=== PATIENT | male | born 1960 | race Caucasian/White ===

== ENCOUNTER 2016-10-02 14:37 | Inpatient (IN) | payer OTHER ==
[~2016-10-02] VITALS: Ht 162.6 cm; Wt 63.5 kg
[2016-10-02] MEDS ORDERED: Vancomycin 1 GM in NS 275 ML IV ONE (15:00)
[2016-10-02] MEDS ORDERED: NS 1000ml 1,900 ML IVLG ONE (15:00)
[2016-10-02 15:30] VITALS: BP 122/75
[2016-10-02] MEDS ORDERED: ATORVASTATIN CA80 MG ORAL (15:36)
[2016-10-02] MEDS ORDERED: ASPIR 8181 MG ORAL (15:36)
[2016-10-02] MEDS ORDERED: ACETAMINOPHEN325 M1 ORAL (15:36)
[2016-10-02 15:37] LABS: BASOPHILS % (AUTO) 1.1 % (0.0-2.0); EOSINOPHILS % (AUTO) 2.2 % (0.0-3.0); LYMPHOCYTES % (AUTO) 40.5 % (20.0-45.0); MEAN CORPUSCULAR HGB CONC 29.8 G/DL (32.0-36.0); MEAN CORPUSCULAR VOLUME 67 FL (80-99); MEAN PLATELET VOLUME 7.2 FL (6.5-10.1); MONOCYTES % (AUTO) 7.5 % (1.0-10.0); NEUTROPHILS % (AUTO) 48.8 % (45.0-75.0); PLATELET COUNT 276 K/UL (150-450); RED CELL DISTRIBUTION WIDTH 15.3 % (11.6-14.8); WHITE BLOOD COUNT 6.5 K/UL (4.8-10.8)
[2016-10-02] MEDS ORDERED: BENAZEPRIL HCL10 MG ORAL (15:37)
[2016-10-02] MEDS ORDERED: PLAVIX75 MG ORAL (15:37)
[2016-10-02] MEDS ORDERED: DILAUDID8 MG PO (15:37)
[2016-10-02 15:45] LABS: PROTHROMBIN TIME 10.7 SEC (9.30-11.50)
[2016-10-02] MEDS ORDERED: Vancomycin 1gm inj IVPB ONE (15:46)
--- NOTE | 2016-10-02 15:47 | Emergency Room Report ---
History of Present Illness General Chief Complaint: General Complaint Source: Patient, Medical Record, EMS Present Illness HPI This patient is brought in from a shelter facility. He is brought in by EMS. He presents for concern of poor wound healing. The patient underwent a left BKA July 31 at [facility]. It is very difficult to determine what exactly the patient is here for. I attempted to contact the physician who sent this patient from a shelter facility was having difficulty with this. Review of the medical record shows that there is wound dehiscence at the surgical site of the left BKA and he has been getting wound care. I believe that he is presenting for the wound dehiscence. The patient has no specific complaints. There is no fever or chills. There is no nausea or vomiting. There are no other complaints. Allergies: Coded Allergies: No Known Allergies (Unverified , 10/02/16) Patient History Past Medical History: see triage record, old chart reviewed, DM, HTN, psych hx , other - PAD Past Surgical History: other - R.BKA, L. BKA Social History: Denies: alcohol use, drug use, smoking Reviewed Nursing Documentation: PMH: Agreed, PSxH: Agreed Nursing Documentation-PMH Past Medical History: No History, Except For Hx Hypertension: Yes - Hyperlipidemia Hx Diabetes: Yes Review of Systems All Other Systems: negative except mentioned in HPI Physical Exam Vital Signs Date Time Temp Pulse Resp B/P Pulse Ox O2 Delivery O2 Flow Rate FiO2 10/02/16 14:38 98.2 82 16 122/75 96 Room Air Sp02 EP Interpretation: reviewed, normal General Appearance: no apparent distress, alert, GCS 15, non-toxic Head: normocephalic, atraumatic Eyes: bilateral eye PERRL, bilateral eye normal inspection ENT: hearing grossly normal, normal pharynx, no angioedema, normal voice Neck: full range of motion, supple/symm/no masses Respiratory: chest non-tender, lungs clear, normal breath sounds, speaking full sentences Cardiovascular #1: regular rate, rhythm, no edema Gastrointestinal: normal bowel sounds, non tender, soft, non-distended, no guarding, no rebound Rectal: deferred Musculoskeletal: normal range of motion, other - Left BKA post surgical incision site shows several quarter-sized areas of wound dehiscence. No surrounding erythema, purulent or warmth. Neurologic: alert, oriented x3, responsive, motor strength/tone normal, sensory intact, speech normal Psychiatric: judgement/insight normal, memory normal, mood/affect normal, no suicidal/homicidal ideation Skin: normal color, warm/dry, well hydrated, other - See MSK exam Medical Decision Making Diagnostic Impression: Primary Impression: Wound dehiscence ER Course This patient has wound dehiscence at his left BKA post surgical incision site. The surgery was done at [facility]. There is no evidence of wound infection. The patient's lactate was elevated. I am unsure of the etiology of this. The patient does have a wound dehiscence. The patient was given broad- spectrum antibiotics and will be admitted for further evaluation and treatment. Labs Test 10/02/16 15:15 White Blood Count 6.5 K/UL (4.8-10.8) Red Blood Count 5.50 M/UL (4.70-6.10) Hemoglobin 11.0 G/DL (14.2-18.0) Hematocrit 36.9 % (42.0-52.0) Mean Corpuscular Volume 67 FL (80-99) Mean Corpuscular Hemoglobin 20.0 PG (27.0-31.0) Mean Corpuscular Hemoglobin Concent 29.8 G/DL (32.0-36.0) Red Cell Distribution Width 15.3 % (11.6-14.8) Platelet Count 276 K/UL (150-450) Mean Platelet Volume 7.2 FL (6.5-10.1) Neutrophils (%) (Auto) 48.8 % (45.0-75.0) Lymphocytes (%) (Auto) 40.5 % (20.0-45.0) Monocytes (%) (Auto) 7.5 % (1.0-10.0) Eosinophils (%) (Auto) 2.2 % (0.0-3.0) Basophils (%) (Auto) 1.1 % (0.0-2.0) Prothrombin Time 10.7 SEC (9.30-11.50) Prothromb Time International Ratio 1.0 (0.9-1.1) Activated Partial Thromboplast Time 27 SEC (23-33) Sodium Level 135 mEQ/L (135-145) Potassium Level 4.6 mEQ/L (3.4-4.9) Chloride Level 98 mEQ/L (98-107) Carbon Dioxide Level 25 mEQ/L (20-30) Anion Gap 12 (5-15) Blood Urea Nitrogen 10 mg/dL (7-23) Creatinine 0.7 mg/dL (0.7-1.2) Estimat Glomerular Filtration Rate > 60 mL/min (>60) Glucose Level 199 mg/dL (74-106) Calcium Level 9.4 mg/dL (8.6-10.2) Total Bilirubin 0.2 mg/dL (0.0-1.2) Aspartate Amino Transf (AST/SGOT) 11 U/L (5-40) Alanine Aminotransferase (ALT/SGPT) 8 U/L (3-41) Alkaline Phosphatase 36 U/L (40-129) Total Creatine Kinase 35 U/L (38-174) Creatine Kinase MB 2.4 ng/mL (< 6.7) Creatine Kinase MB Relative Index 6.8 Total Protein 6.4 g/dL (6.6-8.7) Albumin 3.8 g/dL (3.5-5.2) Globulin 2.6 g/dL Albumin/Globulin Ratio 1.4 (1.0-2.7) EKG Diagnostic Results Rate: normal Rhythm: NSR ST Segments: no acute changes Rhythm Strip Diag. Results EP Interpretation: yes Rate: 80's Rhythm: NSR, no PVC's, no ectopy Last Vital Signs Date Time Temp Pulse Resp B/P Pulse Ox O2 Delivery O2 Flow Rate FiO2 10/02/16 14:38 98.2 82 16 122/75 96 Room Air Disposition: ADMITTED INPATIENT Condition: Stable Referrals: [facility],REFERRING (PCP) FITO GONZALEZ D.O. Oct 02, 2016 15:47
[2016-10-02] MEDS ORDERED: BISACODYL5 MG RECTAL (15:48)
[2016-10-02] MEDS ORDERED: FLEET ENEMA133 ML RECTAL (15:48)
[2016-10-02] MEDS ORDERED: GABAPENTIN100 MG ORAL (15:48)
[2016-10-02] MEDS ORDERED: GABAPENTIN300 MG ORAL (15:49)
[2016-10-02] MEDS ORDERED: HUMALOG100 UNIT/4 SUBQ (15:49)
[2016-10-02] MEDS ORDERED: LANTUS SOL100 UNIT/1 SUBQ (15:49)
[2016-10-02 15:52] LABS: ALANINE AMINOTRANSFERASE 8 U/L (3-41); ALBUMIN/GLOBULIN RATIO 1.4 (1.0-2.7); ANION GAP 12 (5-15); ASPARTATE AMINO TRANSFERASE 11 U/L (5-40); CALCIUM 9.4 mg/dL (8.6-10.2); CARBON DIOXIDE 25 mEQ/L (20-30); CHLORIDE 98 mEQ/L (98-107); CREATININE 0.7 mg/dL (0.7-1.2); GLOMERULAR FILTRATION RATE > 60 mL/min (>60); HEMOLYSIS 5; POTASSIUM 4.6 mEQ/L (3.4-4.9); SODIUM 135 mEQ/L (135-145); TOTAL PROTEIN 6.4 g/dL (6.6-8.7)
[2016-10-02 16:02] LABS: CKMB 2.4 ng/mL (< 6.7)
[2016-10-02 16:18] VITALS: BP 113/52
[2016-10-02 16:24] LABS: REFLEX LACTIC ACID YES OR NO YES
[2016-10-02] MEDS ORDERED: METFORMIN HCL1000 M1 ORAL (17:04)
[2016-10-02] MEDS ORDERED: MILK OF MA400 MG/51 ORAL (17:04)
[2016-10-02] MEDS ORDERED: MS CONTIN30 MG ORAL (17:04)
[2016-10-02] MEDS ORDERED: MELATONIN5 M6 PO (17:04)
[2016-10-02 17:30] VITALS: BP 129/110
[2016-10-02 19:30] VITALS: BP 122/56
[2016-10-02] MEDS ORDERED: Mylanta II UD 30ml ORAL PRN (19:30)
[2016-10-02] MEDS ORDERED: LORazepam Inj 2mg/ml 1ml IV PRN (19:30)
[2016-10-02 20:45] VITALS: BP 122/66
[2016-10-02] MEDS ORDERED: Miralax 17gm pkt ORAL PRN (21:00)
[2016-10-02] MEDS ORDERED: Zolpidem 5mg tab ORAL PRN (21:00)
[2016-10-02] MEDS: Atorvastatin 80mg tab ORAL SCH (21:41)
[2016-10-02] MEDS: Heparin 5000 units/ml inj SUBQ SCH (21:42)
[2016-10-02] MEDS: Morphine Sulfate 2mg/ml Inj IVP PRN (21:44)
[2016-10-02] MEDS: NovoLOG Insulin Flexpen SUBQ SCH (22:17)
[2016-10-03] VITALS: BP 134/74
[2016-10-03 04:00] VITALS: BP 151/64
[2016-10-03] MEDS: NovoLOG Insulin Flexpen SUBQ SCH ×4 (06:13→21:46)
[2016-10-03 08:00] VITALS: BP 136/67
[2016-10-03] MEDS: Heparin 5000 units/ml inj SUBQ SCH ×2 (09:00→21:45)
[2016-10-03] MEDS: Aspirin EC 81mg tab ORAL SCH (09:00)
[2016-10-03] MEDS: Morphine Sulfate 2mg/ml Inj IVP PRN ×4 (09:57→22:29)
--- NOTE | 2016-10-03 11:49 | Wound Care Consultation ---
Wound Assessment Wound Assessment #1: Wound Number: #1 Wound Present on Admission: Yes New Wound: No Status Change of Wound: No Wound Location Body Site Modif: left, medial Wound Location Body Site: other - stump Wound Type: other - non healing open wound. Rogelio Test: Does not Rogelio Incisional Wounds: Dehisced Incision Wound Thickness: Full Thickness Wound Length: 1.5 Wound Width: 3.2 Wound Depth: 0.5 Percent of Wound [place]/Red: 50 Percent of Wound Bed Yellow/Wh: 40 Percent of Wound Black/Brown: 10 Wound Drainage Description: Serosanguineous Wound Drainage Amount: Moderate Wound Drainage Odor: None/Absent Tissue Surrounding Wound: Erythemic - noted open wound along surgical incision scar,wound dehiscence. Wound General Appearance: Reddened, Blackened, Necrotic Wound Assessment #2: Wound Number: #2 Wound Present on Admission: Yes New Wound: No Status Change of Wound: No Wound Location Body Site Modif: left, lower, medial Wound Location Body Site: other - stump Wound Type: scab Rogelio Test: Does not Rogelio Wound Thickness: Full Thickness Wound Length: 0.5 Wound Width: 0.5 Wound Depth: utd Percent of Wound Bed Yellow/Wh: 100 - thick yellow scab. Wound Drainage Amount: None Wound Drainage Odor: None/Absent Tissue Surrounding Wound: Erythemic Wound General Appearance: Reddened - surrounding tissue reddened , wound bed noted with thick yellow adhered scab. Wound Assessment #3: Wound Number: #3 Wound Present on Admission: Yes New Wound: No Status Change of Wound: No Wound Location Body Site Modif: left, anterior Wound Location Body Site: other - stump Wound Type: other - non healing open wound. Rogelio Test: Does not Rogelio Incisional Wounds: Dehisced Incision Wound Thickness: Full Thickness Wound Length: 3.0 Wound Width: 7.5 Wound Depth: utd Percent of Wound [place]/Red: 40 Percent of Wound Bed Yellow/Wh: 60 Percent of Wound Black/Brown: 10 Wound Drainage Description: Serosanguineous Wound Drainage Amount: Moderate Wound Drainage Odor: None/Absent Tissue Surrounding Wound: Erythemic Wound General Appearance: Reddened, Blackened, Necrotic Wound Assessment #4: Wound Number: #4 Wound Present on Admission: Yes New Wound: No Status Change of Wound: No Wound Location Body Site Modif: left Wound Location Body Site: other - stump Wound Type: scar - surgical scar Rogelio Test: Does not Rogelio Wound Thickness: Full Thickness Wound Length: 14.0 Wound Width: 10.0 Wound Depth: utd Percent of Wound [place]/Red: 100 Wound Drainage Amount: None Wound Drainage Odor: None/Absent Tissue Surrounding Wound: Intact Wound General Appearance: Clean/Dry Wound Comment #1 left stump surgical scar. #2 left lower medial stump thick yellow scab. #3 left medial stump non healing open-wound. #4 left anterior stump non healing open -wound. Recommendation. - Local wound care as ordered. -Turn and reposition. -Keep clean and dry. -Offload affected areas. -Optimize nutrition. -Avoid shear and friction. -Assess and notify MD for any changes of condition noted to skin. UMU AVILES Oct 03, 2016 11:49
[2016-10-03 12:00] VITALS: BP 137/70
[2016-10-03 16:01] VITALS: BP 151/75
--- NOTE | 2016-10-03 17:24 | History and Physical ---
History of Present Illness General Date patient seen: Oct 03, 2016 Reason for Hospitalization: General Complaint Present Illness HPI 56 year old male with hx of DM, PVD, bilateral BKA, assisted resident nany in for concern of poor wound healing. There is wound dehiscence at the surgical site of the left BKA and he has been getting wound care. Pt is admitted for worsening wound. Allergies: Coded Allergies: No Known Allergies (Unverified , 10/02/16) Medication History Scheduled Aspirin* (Aspir 81*), 81 MG ORAL DAILY, (Reported) Atorvastatin Calcium* (Lipitor*), 80 MG ORAL BEDTIME, (Reported) Benazepril Hcl* (Benazepril Hcl*), 10 MG ORAL DAILY, (Reported) Clopidogrel Bisulfate* (Plavix*), 75 MG ORAL DAILY, (Reported) Gabapentin* (Gabapentin*), 100 MG ORAL BEDTIME, (Reported) Gabapentin* (Gabapentin*), 300 MG ORAL THREE TIMES A DAY, (Reported) Insulin Glargine (Lantus), 32 UNITS SUBQ BEDTIME, (Reported) Metformin Hcl* (Metformin Hcl*), 1,000 MG ORAL TWICE A DAY, (Reported) Morphine Sulfate* (Ms Contin*), 15 MG ORAL EVERY 12 HOURS, (Reported) Morphine Sulfate* (Ms Contin*), 30 MG ORAL EVERY 12 HOURS, (Reported) Scheduled PRN Acetaminophen* (Acetaminophen 325MG Tablet*), 650 MG ORAL Q4H PRN for Fever/ Headache/Mild Pain, (Reported) Bisacodyl* (Dulcolax*), Unknown Dose RECTAL DAILY PRN for Constipation, ( Reported) Hydromorphone Hcl (Dilaudid), 4 MG PO EVERY 2 HOURS PRN for For Pain, (Reported) Magnesium Hydroxide* (Milk Of Magnesia*), 30 ML ORAL DAILY PRN for Constipation, (Reported) Melatonin (Melatonin), 5 MG PO BEDTIME PRN for Insomnia, (Reported) Na Phos,M-B/Na Phos,Di-Ba* (Fleet Enema*), 118 ML RECTAL DAILY PRN for Constipation, (Reported) Miscellaneous Medications Insulin Lispro (Humalog), 0 SUBQ, (Reported) Patient History Healthcare decision maker Resuscitation status Full Code Advanced Directive on File Yes Past Medical/Surgical History Past Medical/Surgical History: (1) Diabetes mellitus (2) PVD (peripheral vascular disease) Review of Systems All Other Systems: negative except mentioned in HPI Physical Exam General Appearance: WD/WN Lines, tubes and drains: peripheral HEENT: normocephalic Neck: non-tender Respiratory/Chest: chest wall non-tender Breasts: no masses Cardiovascular/Chest: normal peripheral pulses Abdomen: normal bowel sounds Genitourinary/Rectal: normal genital exam Last 24 Hour Vital Signs Date Time Temp Pulse Resp B/P Pulse Ox O2 Delivery O2 Flow Rate FiO2 10/03/16 16:01 99.9 77 14 151/75 100 Room Air 10/03/16 12:00 99.7 85 15 137/70 100 Nasal Cannula 10/03/16 08:00 100.6 83 20 136/67 100 Room Air 10/03/16 04:00 98.1 68 20 151/64 98 Room Air 10/03/16 00:00 98.8 87 20 134/74 99 Room Air 10/02/16 20:45 88 18 122/56 98 Room Air 10/02/16 20:45 98.9 88 18 122/66 100 Room Air 10/02/16 19:30 97.8 88 18 122/56 98 Room Air 10/02/16 17:30 97.8 86 18 129/110 100 Room Air Intake and Output 10/02/16 10/03/16 19:00 07:00 Intake Total 3225 ml Output Total 620 ml 900 ml Balance 2605 ml -900 ml Intake Oral 50 ml IV Total 3175 ml Output Urine Total 620 ml 900 ml Laboratory Tests Test 10/02/16 18:28 Lactic Acid Level 2.60 mmol/L (0.66-2.22) H Height (Feet): 5 Height (Inches): 4.00 Weight (Pounds): 140 Medications Current Medications Medications (Trade) Dose Ordered Sig/Saul Route PRN Reason Start Time Stop Time Status Last Admin Dose Admin Acetaminophen (Tylenol) 650 mg Q4H PRN ORAL Fever/Headache/Mild Pain 10/02/16 19:30 11/01/16 19:29 Acetaminophen (Tylenol) 650 mg Q4H PRN ORAL T>100.5 10/02/16 19:30 11/01/16 19:29 Al Hydroxide/Mg Hydroxide (Mylanta II) 30 ml Q6H PRN ORAL dyspepsia 10/02/16 19:30 11/01/16 19:29 Aspirin (Ecotrin) 81 mg DAILY ORAL 10/03/16 09:00 11/02/16 08:59 10/03/16 09:00 Atorvastatin Calcium (Lipitor) 80 mg BEDTIME ORAL 10/02/16 21:00 11/01/16 20:59 10/02/16 21:41 Clopidogrel Bisulfate (Plavix) 75 mg DAILY ORAL 10/03/16 09:00 11/02/16 08:59 10/03/16 09:00 Dextrose (Dextrose 50%) STAT PRN IV Hypoglycemia 10/02/16 19:30 11/01/16 19:29 Gabapentin (Neurontin) 100 mg BEDTIME ORAL 10/02/16 22:00 11/01/16 21:59 10/02/16 21:41 Heparin Sodium (Porcine) (Heparin 5000 units/ml) 5,000 units EVERY 12 HOURS SUBQ 10/02/16 21:00 11/01/16 20:59 10/03/16 09:00 Insulin Aspart (NovoLOG) BEFORE MEALS AND HS SUBQ 10/02/16 22:30 11/01/16 22:29 10/03/16 06:13 Lorazepam (Ativan 2mg/ml 1ml) 0.5 mg Q4H PRN IV For Anxiety 10/02/16 19:30 10/09/16 19:29 Morphine Sulfate (Morphine Sulfate) 1 mg Q4H PRN IVP PAIN 4-10 10/02/16 19:30 10/09/16 19:29 10/03/16 14:36 Ondansetron HCl (Zofran) 4 mg Q6H PRN IVP Nausea & Vomiting 10/02/16 19:30 11/01/16 19:29 Polyethylene Glycol (Miralax) 17 gm HSPRN PRN ORAL Constipation 10/02/16 21:00 11/01/16 20:59 Zolpidem Tartrate (Ambien) 5 mg HSPRN PRN ORAL Insomnia 10/02/16 21:00 11/01/16 20:59 Assessment/Plan Problem List: (1) Wound dehiscence ICD Codes: T81.30XA - Disruption of wound, unspecified, initial encounter SNOMED: 047839779 (2) Diabetes mellitus ICD Codes: E11.9 - Type 2 diabetes mellitus without complications SNOMED: 86743199 (3) PVD (peripheral vascular disease) ICD Codes: I73.9 - Peripheral vascular disease, unspecified SNOMED: 157427751 Assessment/Plan surgical consult wound care sliding scale RAEANN LEVINE Oct 03, 2016 17:24
--- NOTE | 2016-10-03 18:12 | Consultation ---
History of Present Illness General Date patient seen: Oct 03, 2016 Chief Complaint: General Complaint Present Illness HPI 56M s/p bilateral BKA 2 months ago at [facility] currently admitted for medical care. Was noted to have small are of wound dehiscence on left BKA incision. surgery called to evaluate. When talking with patient, states that he is well. mild pain in legs but no fever or chills. no drainage. did not note or care for wound since surgery. does not recall why he had BKA Allergies: Coded Allergies: No Known Allergies (Unverified , 10/02/16) Medication History Scheduled Aspirin* (Aspir 81*), 81 MG ORAL DAILY, (Reported) Atorvastatin Calcium* (Lipitor*), 80 MG ORAL BEDTIME, (Reported) Benazepril Hcl* (Benazepril Hcl*), 10 MG ORAL DAILY, (Reported) Clopidogrel Bisulfate* (Plavix*), 75 MG ORAL DAILY, (Reported) Gabapentin* (Gabapentin*), 100 MG ORAL BEDTIME, (Reported) Gabapentin* (Gabapentin*), 300 MG ORAL THREE TIMES A DAY, (Reported) Insulin Glargine (Lantus), 32 UNITS SUBQ BEDTIME, (Reported) Metformin Hcl* (Metformin Hcl*), 1,000 MG ORAL TWICE A DAY, (Reported) Morphine Sulfate* (Ms Contin*), 15 MG ORAL EVERY 12 HOURS, (Reported) Morphine Sulfate* (Ms Contin*), 30 MG ORAL EVERY 12 HOURS, (Reported) Scheduled PRN Acetaminophen* (Acetaminophen 325MG Tablet*), 650 MG ORAL Q4H PRN for Fever/ Headache/Mild Pain, (Reported) Bisacodyl* (Dulcolax*), Unknown Dose RECTAL DAILY PRN for Constipation, ( Reported) Hydromorphone Hcl (Dilaudid), 4 MG PO EVERY 2 HOURS PRN for For Pain, (Reported) Magnesium Hydroxide* (Milk Of Magnesia*), 30 ML ORAL DAILY PRN for Constipation, (Reported) Melatonin (Melatonin), 5 MG PO BEDTIME PRN for Insomnia, (Reported) Na Phos,M-B/Na Phos,Di-Ba* (Fleet Enema*), 118 ML RECTAL DAILY PRN for Constipation, (Reported) Miscellaneous Medications Insulin Lispro (Humalog), 0 SUBQ, (Reported) Patient History History Provided By: Patient, Medical Record Healthcare decision maker Resuscitation status Full Code Advanced Directive on File Yes Past Medical/Surgical History Past Medical/Surgical History: (1) Diabetes mellitus (2) PVD (peripheral vascular disease) (3) Wound dehiscence Review of Systems Constitutional: Denies: chills, fever, malaise, no symptoms, other, see HPI, sweats, weakness Eye: Denies: acuity changes, blurred vision, discharge, double vision, eye pain , no symptoms, nose congestion, nose pain, other, see HPI, tearing ENT: Denies: ear discharge, ear pain, hearing loss, mouth pain, nasal discharge , no symptoms, nose congestion, nose pain, other, see HPI, throat pain, throat swelling Respiratory: Denies: HICKS, cough, no symptoms, orthopnea, other, see HPI, shortness of breath, sputum, stridor, wheezing Cardiovascular: Denies: PND, chest pain, edema, no symptoms, other, palpitations, see HPI, syncope Gastrointestinal: Denies: abdominal pain, constipation, diarrhea, hematemesis, melena, nausea, no symptoms, other, see HPI, vomiting Genitourinary: Denies: discharge, dysuria, frequency, hematuria, incontinence, no symptoms, other, pain, retention, see HPI, urgency, vag bleed/dc Musculoskeletal: Denies: back pain, gout, joint pain, joint swelling, muscle pain, muscle stiffness, no symptoms, other, see HPI Skin: Denies: change in color, change in hair/nails, dryness, lesions, no symptoms, other, rash, see HPI Psychiatric: Denies: HI, SI, anxiety, depressed feelings, emotional problems, hallucinations, no symptoms, other, prior hx, see HPI Neurological: Denies: dizziness, focal weakness, headache, no symptoms, numbness, other, paresthesia, see HPI, seizure, syncope, tingling, tremors Endocrine: Denies: excessive sweating, flushing, increased thirst, increased urine, intolerance to temperature, no symptoms, other, see HPI, unexplained weight loss Hematologic/Lymphatic: Denies: anemia, blood clots, diathesis, easy bleeding, easy bruising, no symptoms, other, see HPI, swollen glands Physical Exam General Appearance: no apparent distress, alert Lines, tubes and drains: peripheral HEENT: atraumatic, PERRL Neck: normal inspection Respiratory/Chest: normal breath sounds, no respiratory distress, no accessory muscle use Cardiovascular/Chest: normal peripheral pulses, normal rate Abdomen: normal bowel sounds, non tender, soft, no organomegaly, no mass Extremities: other - s/p bilateral bka. left bka incision with two small areas of wound dehiscence. 2cm x 1cm and 1cm x 1cm superficial. no signs of infection. clean Skin Exam: warm/dry Neurologic: alert, oriented x 3 Last 24 Hour Vital Signs Date Time Temp Pulse Resp B/P Pulse Ox O2 Delivery O2 Flow Rate FiO2 10/03/16 16:01 99.9 77 14 151/75 100 Room Air 10/03/16 12:00 99.7 85 15 137/70 100 Nasal Cannula 10/03/16 08:00 100.6 83 20 136/67 100 Room Air 10/03/16 04:00 98.1 68 20 151/64 98 Room Air 10/03/16 00:00 98.8 87 20 134/74 99 Room Air 10/02/16 20:45 88 18 122/56 98 Room Air 10/02/16 20:45 98.9 88 18 122/66 100 Room Air 10/02/16 19:30 97.8 88 18 122/56 98 Room Air Intake and Output 10/02/16 10/03/16 19:00 07:00 Intake Total 3225 ml Output Total 620 ml 900 ml Balance 2605 ml -900 ml Intake Oral 50 ml IV Total 3175 ml Output Urine Total 620 ml 900 ml Laboratory Tests Test 10/02/16 18:28 Lactic Acid Level 2.60 mmol/L (0.66-2.22) H Height (Feet): 5 Height (Inches): 4.00 Weight (Pounds): 140 Medications Current Medications Medications (Trade) Dose Ordered Sig/Saul Route PRN Reason Start Time Stop Time Status Last Admin Dose Admin Acetaminophen (Tylenol) 650 mg Q4H PRN ORAL Fever/Headache/Mild Pain 10/02/16 19:30 11/01/16 19:29 Acetaminophen (Tylenol) 650 mg Q4H PRN ORAL T>100.5 10/02/16 19:30 11/01/16 19:29 Al Hydroxide/Mg Hydroxide (Mylanta II) 30 ml Q6H PRN ORAL dyspepsia 10/02/16 19:30 11/01/16 19:29 Aspirin (Ecotrin) 81 mg DAILY ORAL 10/03/16 09:00 11/02/16 08:59 10/03/16 09:00 Atorvastatin Calcium (Lipitor) 80 mg BEDTIME ORAL 10/02/16 21:00 11/01/16 20:59 10/02/16 21:41 Clopidogrel Bisulfate (Plavix) 75 mg DAILY ORAL 10/03/16 09:00 11/02/16 08:59 10/03/16 09:00 Dextrose (Dextrose 50%) STAT PRN IV Hypoglycemia 10/02/16 19:30 11/01/16 19:29 Gabapentin (Neurontin) 100 mg BEDTIME ORAL 10/02/16 22:00 11/01/16 21:59 10/02/16 21:41 Heparin Sodium (Porcine) (Heparin 5000 units/ml) 5,000 units EVERY 12 HOURS SUBQ 10/02/16 21:00 11/01/16 20:59 10/03/16 09:00 Insulin Aspart (NovoLOG) BEFORE MEALS AND HS SUBQ 10/02/16 22:30 11/01/16 22:29 10/03/16 06:13 Lorazepam (Ativan 2mg/ml 1ml) 0.5 mg Q4H PRN IV For Anxiety 10/02/16 19:30 10/09/16 19:29 Morphine Sulfate (Morphine Sulfate) 1 mg Q4H PRN IVP PAIN 4-10 10/02/16 19:30 10/09/16 19:29 10/03/16 14:36 Ondansetron HCl (Zofran) 4 mg Q6H PRN IVP Nausea & Vomiting 10/02/16 19:30 11/01/16 19:29 Polyethylene Glycol (Miralax) 17 gm HSPRN PRN ORAL Constipation 10/02/16 21:00 11/01/16 20:59 Zolpidem Tartrate (Ambien) 5 mg HSPRN PRN ORAL Insomnia 10/02/16 21:00 11/01/16 20:59 Assessment/Plan Problem List: (1) Wound dehiscence Assessment & Plan: 56M with wound dehiscence of left BKA incision from 2 months ago. two small areas that are superficial. no signs of infection. wet to dry dressings BID to wounds. will granulate over and heal via secondary intention with time. will follow thank you for this consultation. ICD Codes: T81.30XA - Disruption of wound, unspecified, initial encounter SNOMED: [id number] Status: stable Yobani Cordova Oct 03, 2016 18:12
[2016-10-03 20:00] VITALS: BP 157/78
[2016-10-03] MEDS: Atorvastatin 80mg tab ORAL SCH (21:46)
[2016-10-04] VITALS: BP 137/73
[2016-10-04] MEDS: Morphine Sulfate 2mg/ml Inj IVP PRN ×4 (02:29→15:51)
[2016-10-04 04:00] VITALS: BP 134/66
[2016-10-04] MEDS: NovoLOG Insulin Flexpen SUBQ SCH ×3 (06:08→16:30)
[2016-10-04 08:07] VITALS: BP 124/67
[2016-10-04] MEDS: Aspirin EC 81mg tab ORAL SCH (08:33)
[2016-10-04] MEDS: Heparin 5000 units/ml inj SUBQ SCH (08:35)
[2016-10-04] MEDS ORDERED: Lidocaine 1% MPF 10mg/ml 5ml INJ ONE (12:00)
[2016-10-04] MEDS ORDERED: HYDROmorphone 1mg/ml Carpuject IVP ONE (12:00)
--- NOTE | 2016-10-04 12:02 | Operative Note - PDOC ---
Operative Note Operative Note Date of Operation/Procedure: Oct 04, 2016 Pre-op Diagnosis: left bka stump wound dehiscence Procedure: primary closure of left bka stump wound dehiscence Post-op Diagnosis: same as pre-op Surgeon: siobhan Anesthesia: local - 1% lido plain Specimen: none Complications: none Condition: stable Fluids: n/a Estimated Blood Loss: none Drains: none Implant(s) used?: No Indications for Procedure 56M s/p BKA bilaterally 2 months ago at [facility]. Has been in facility since and doing well. Recently noted to have some mild dehiscence of left BKA stump incision and has been receiving wound care. Wound evaluated earlier and noted to be clean without signs of infection and good granulation tissue. Given seperationi tension from gravity on anterior incision, decision was made to place sutures for wound reapproximation. Risks, benefits and alternatives discussed with patient in detail. patient expressed understanding and consented to procedure. Description of Procedure Left wound identified. wound cleaned and prepped. wound draped. 1% lido plain infiltrated into planned closure site. multiple 3-0 nylon sutures placed to reapproximate skin edges and close wound. good reapproximation noted. patient tolerated well. wound cleaned and dressings applied. Yobani Cordova Oct 04, 2016 12:02
--- NOTE | 2016-10-04 12:04 | General Progress Note ---
Progress Note Progress Note Surgery: patient seen and examined. no acute events. wound re-evaluated today and noted to be clean with good granulation tissue. unfortunately, given anterior incision for BKA with fair amount of posterior muscle, the wound will continue to dehiscence because of gravity force. will reapproximate wound today at bedside. refer to procedure note for details. -daily and prn dressings. -sutures can be removed in 2-4 weeks. can be done in office or at facility -thank you for this consultation. Yobani Cordova Oct 04, 2016 12:04
[2016-10-04 12:15] VITALS: BP 120/70
--- NOTE | 2016-10-04 15:12 | Pulmonology Progress Note ---
Assessment/Plan Problems: (1) Wound dehiscence (2) Diabetes mellitus (3) PVD (peripheral vascular disease) Assessment/Plan surgery input appreciated pain control wound care dc to prior setting Subjective ROS Limited/Unobtainable: No Constitutional: Reports: no symptoms HEENT: Repors: no symptoms Respiratory: Reports: no symptoms Allergies: Coded Allergies: No Known Allergies (Unverified , 10/02/16) Objective Last 24 Hour Vital Signs Date Time Temp Pulse Resp B/P Pulse Ox O2 Delivery O2 Flow Rate FiO2 10/04/16 12:15 97.6 75 21 120/70 97 Nasal Cannula 10/04/16 08:07 98.2 77 21 124/67 97 Room Air 10/04/16 04:00 98.1 77 20 134/66 99 Room Air 10/04/16 00:00 99.1 74 20 137/73 99 Room Air 10/03/16 20:00 99.0 70 20 157/78 100 Room Air 10/03/16 16:01 99.9 77 14 151/75 100 Room Air Intake and Output 10/03/16 10/04/16 18:59 06:59 Intake Total 2000 ml 250 ml Output Total 1200 ml 600 ml Balance 800 ml -350 ml Intake Oral 2000 ml 250 ml Output Urine Total 1200 ml 600 ml # Voids 2 General Appearance: WD/WN HEENT: normocephalic, atraumatic Respiratory/Chest: chest wall non-tender, lungs clear, normal breath sounds Cardiovascular: normal peripheral pulses, regular rhythm Abdomen: normal bowel sounds, soft, non tender Genitourinary: normal external genitalia Extremities: no cyanosis Skin: no lesions 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: 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 Lymphatic: no neck adenopathy Current Medications Medications (Trade) Dose Ordered Sig/Saul Route PRN Reason Start Time Stop Time Status Last Admin Dose Admin Acetaminophen (Tylenol) 650 mg Q4H PRN ORAL Fever/Headache/Mild Pain 10/02/16 19:30 11/01/16 19:29 Acetaminophen (Tylenol) 650 mg Q4H PRN ORAL T>100.5 10/02/16 19:30 11/01/16 19:29 Al Hydroxide/Mg Hydroxide (Mylanta II) 30 ml Q6H PRN ORAL dyspepsia 10/02/16 19:30 11/01/16 19:29 Aspirin (Ecotrin) 81 mg DAILY ORAL 10/03/16 09:00 11/02/16 08:59 10/04/16 08:33 Atorvastatin Calcium (Lipitor) 80 mg BEDTIME ORAL 10/02/16 21:00 11/01/16 20:59 10/03/16 21:46 Clopidogrel Bisulfate (Plavix) 75 mg DAILY ORAL 10/03/16 09:00 11/02/16 08:59 10/04/16 08:33 Dextrose (Dextrose 50%) STAT PRN IV Hypoglycemia 10/02/16 19:30 11/01/16 19:29 Gabapentin (Neurontin) 100 mg BEDTIME ORAL 10/02/16 22:00 11/01/16 21:59 10/03/16 21:46 Heparin Sodium (Porcine) (Heparin 5000 units/ml) 5,000 units EVERY 12 HOURS SUBQ 10/02/16 21:00 11/01/16 20:59 10/04/16 08:35 Insulin Aspart (NovoLOG) BEFORE MEALS AND HS SUBQ 10/02/16 22:30 11/01/16 22:29 10/03/16 21:46 Lorazepam (Ativan 2mg/ml 1ml) 0.5 mg Q4H PRN IV For Anxiety 10/02/16 19:30 10/09/16 19:29 Morphine Sulfate (Morphine Sulfate) 4 mg Q4H PRN IVP PAIN 4-10 10/03/16 23:30 10/10/16 23:29 10/04/16 10:37 Ondansetron HCl (Zofran) 4 mg Q6H PRN IVP Nausea & Vomiting 10/02/16 19:30 11/01/16 19:29 Polyethylene Glycol (Miralax) 17 gm HSPRN PRN ORAL Constipation 10/02/16 21:00 11/01/16 20:59 Zolpidem Tartrate (Ambien) 5 mg HSPRN PRN ORAL Insomnia 10/02/16 21:00 11/01/16 20:59 RAEANN LEVINE Oct 04, 2016 15:12
[2016-10-04 15:46] VITALS: BP 144/75
--- NOTE | 2016-10-05 16:18 | Discharge Summary ---
Discharge Summary Hospital Course Date of Admission Oct 02, 2016 at 18:56 Date of Discharge Oct 04, 2016 at 18:58 Admitting Diagnosis wound dehiscence HPI Charly Amato is a 56 year old male who was admitted on Oct 02, 2016 at 18:56 for Wound Dehiscence Hospital Course [id number] Discharge Discharge Disposition Patient was discharged to SNF/Subacute Facility(03) Discharge Diagnoses: Xiomy Price NP Oct 05, 2016 16:18
--- NOTE | 2016-10-06 05:30 | Discharge Summary 2 SIG ---
DATE OF ADMISSION: 10/02/2016 DATE OF DISCHARGE: 10/04/2016 PROJECTOR OPERATOR: Yobani Cordova M.D. BRIEF HOSPITAL COURSE: The patient is a 56-year-old male with history of diabetes mellitus, peripheral vascular disease, bilateral BKA, group home resident, who was brought in for concerns of poor wound healing. There is wound dehiscence at the surgical site of the left BKA and has been getting wound care at the intermediate facility. The patient had a left BKA on 07/31/2016 at [facility]. On evaluation at ED, WBC was 6.5, however, lactic acid was elevated to 3.5. The patient was admitted to medical floor for wound dehiscence, diabetes mellitus and peripheral vascular disease. Surgical consultation was obtained with Dr. Cordova. On evaluation, the patient had two areas of dehiscence that are superficial with no signs of infection. He was recommended wet-to-dry dressing b.i.d. to wounds as tissue will eventually granulate over and heal via secondary intent. On 10/04/2016, a decision was made to place sutures for wound reapproximation. On 10/04/2016, he underwent primary closure of the left BKA stump wound dehiscence. There was good reapproximation noted and the patient tolerated the procedure well. Advised sutures can be removed in two to four weeks, which can be done in office or at the facility. He was given pain control and wound care and was discharged back to SNF. FINAL DIAGNOSES: 1. Wound dehiscence status post recent below-knee amputation. 2. Diabetes mellitus. 3. Peripheral vascular disease. 4. Status post primary closure of the left below-knee amputation stump wound dehiscence. Gamaliel Sales M.D. I have been assigned to dictate discharge summary on this account and I was not involved in the patient's management. Xiomy Price N.P. DR: ROSSY JOB#: [id number] CC: ANALI
== END 2016-10-04 18:58 | DRG 951 ==
LOC: EDBD 14:37 → EMR 14:59 → 4E 18:56 → EDBEDREQ 19:04 → 4E 10-03 12:59
PROC: 0YQGXZZ Repair Left Knee Region, External Approach (ICD-10-PCS; principal; 2016-10-04)
DX: T87.81 Dehiscence of amputation stump (principal); E11.51 Type 2 diabetes mellitus with diabetic peripheral angiopathy without gangrene; I10 Essential (primary) hypertension; E78.5 Hyperlipidemia, unspecified; Z79.82 Long term (current) use of aspirin; Z89.512 Acquired absence of left leg below knee; Z79.4 Long term (current) use of insulin; Y83.5 Amputation of limb(s) as the cause of abnormal reaction of the patient, or of later complication, without mention of misadventure at the time of the procedure; Y92.129 Unspecified place in nursing home as the place of occurrence of the external cause
CPT/HCPCS: 36415; 80053; 82550; 82553; 82962; 83605; 85025; 85610; 85730; 87070; 87081; 93005; J1815